=== PATIENT | male | born 1930 | race Caucasian/White ===

== ENCOUNTER 2017-10-30 10:29 | Observation (INO) | payer MEDICARE, BC ==
[2017-10-30] VITALS (9 sets, daily range): BP systolic 103–134; BP diastolic 52–72; PULSE 59–75; TEMP 96.4–97.8
[~2017-10-30] VITALS: Ht 182.9 cm; Wt 92.1 kg
[2017-10-30] MEDS ORDERED: PRILOTC PO (12:29)
[2017-10-30] MEDS ORDERED: PRINZIDE 12.5 M1 TA1 PO (12:30)
[2017-10-30] MEDS ORDERED: K-DUR20 MEQ PO (12:30)
[2017-10-30] MEDS ORDERED: TOPROL XL 25MG25 MG PO (12:31)
[2017-10-30] MEDS ORDERED: ZOCOR 40MG40 MG PO (12:32)
[2017-10-30] MEDS ORDERED: MULTIPLE VITAMI1 CAP PO (12:33)
[2017-10-30] MEDS ORDERED: ASPIRIN 81M81 MG/TA2 PO (12:34)
[2017-10-30] MEDS ORDERED: MASON NATURAL1000 MG PO (12:35)
[2017-10-30] MEDS ORDERED: VITAMIN D 400400 IU PO (12:35)
[2017-10-30] MEDS ORDERED: NITROSTAT0.4 MG/TAB SL (12:36)
[2017-10-31 03:21] VITALS: BP 97/43; PULSE 65; TEMP 98.1
[2017-10-31 06:14] LABS: BASO # 0.1 (0.0-0.2); BASO % 0.7 % (0.0-2.0); EOS # 0.2 (0.0-0.7); GRAN # 6.1 (1.4-6.5); GRAN % 70.7 % (42.2-75.2); HEMATOCRIT 41.1 % (42.0-52.0); HEMOGLOBIN 14.2 g/dl (13.5-18.0); LYMPH # 1.7 (1.2-3.4); LYMPH % 19.8 % (20.0-51.0); MEAN CELL VOLUME 99 fl (80.0-100.0); MEAN CORPUSCULAR HEMOGLOBIN 34 pg (27.0-31.0); MEAN CORPUSCULAR HGB CONC 35 g/dl (33.0-37.0); MEAN PLATELET VOLUME 9.5 fl (7.4-10.4); MONO # 0.6 (0.1-0.6); MONO % 6.5 % (1.7-9.3); PLATELET COUNT 199 K/mm3 (130-400); RED BLOOD COUNT 4.14 M/mm3 (4.20-5.60); REDCELL DISTRIBUTION WIDTH-CV 13.1 % (11.5-14.5)
[2017-10-31 07:53] VITALS: BP 113/92; PULSE 80; TEMP 97.5
[2017-10-31 11:25] VITALS: BP 96/82; PULSE 69; TEMP 97.4
[2017-10-31 17:09] VITALS: BP 124/72; PULSE 70; TEMP 97.9
[2017-10-31 19:42] VITALS: BP 143/71; PULSE 82; TEMP 97.7
[2017-10-31 23:08] VITALS: BP 119/63; PULSE 77; TEMP 97.7
[2017-11-01 04:00] VITALS: BP 124/67; PULSE 85; TEMP 97.8
[2017-11-01 07:30] VITALS: BP 123/68; PULSE 97; TEMP 97.6
[2017-11-01 11:30] VITALS: BP 112/62; PULSE 79; TEMP 98
== END 2017-11-01 14:30 | disposition home or self-care (01) ==
LOC: SDCO 10:29 → MEDICAL 16:33 → SDCO 10-31 10:30 → MEDICAL 10-31 10:31
PROVIDERS: Urology
DX: C61 Malignant neoplasm of prostate (principal); N40.1 Benign prostatic hyperplasia with lower urinary tract symptoms; R33.8 Other retention of urine; N32.0 Bladder-neck obstruction; I25.10 Atherosclerotic heart disease of native coronary artery without angina pectoris; I25.2 Old myocardial infarction; I10 Essential (primary) hypertension; Z79.82 Long term (current) use of aspirin; Z80.42 Family history of malignant neoplasm of prostate; Z87.891 Personal history of nicotine dependence; M17.11 Unilateral primary osteoarthritis, right knee; Z88.6 Allergy status to analgesic agent; Z88.5 Allergy status to narcotic agent
CPT/HCPCS: OP; J0690; J2270; J2405; J2704; J3010; J3480; J7120